=== PATIENT | male | born 1970 | race Caucasian/White ===

== ENCOUNTER 2019-12-24 06:56 | Emergency (ER) | payer MEDICAID ==
[~2019-12-24] VITALS: Ht 182.9 cm; Wt 99.8 kg
[2019-12-24 07:06] VITALS: BP_SYST 150
[2019-12-24] MEDS ORDERED: cefTRIAXone 1 GM VIAL IM ONE (07:15)
[2019-12-24 07:40] VITALS: BP_SYST 149
== END 2019-12-24 07:40 | disposition home or self-care (01) ==
LOC: SED 06:56
DX: L03.211 Cellulitis of face (principal); K02.9 Dental caries, unspecified
CPT/HCPCS: 96372; 99283; J0696

== ENCOUNTER 2020-04-02 15:18 | Emergency (ER) | payer MEDICAID ==
[~2020-04-02] VITALS: Ht 182.9 cm; Wt 102.1 kg
[2020-04-02 15:30] VITALS: BP_SYST 165
[2020-04-02 17:31] VITALS: BP_SYST 165
== END 2020-04-02 17:32 | disposition home or self-care (01) ==
LOC: SED 15:18
DX: S63.501A Unspecified sprain of right wrist, initial encounter (principal); X50.0XXA Overexertion from strenuous movement or load, initial encounter; Y93.89 Activity, other specified; Y92.89 Other specified places as the place of occurrence of the external cause; Y99.8 Other external cause status
CPT/HCPCS: 99283